=== PATIENT | male | born 1950 | race Caucasian/White ===

== ENCOUNTER 2019-01-22 17:59 | Inpatient (IN) ==
--- NOTE | 2019-01-22 18:20 | PROVIDER DOCUMENTATION ---
HPI-General Adult - General Chief Complaint: Numbness Stated Complaint: (R) ARM NUMB Time Seen by Provider: 01/22/19 18:19 Source: patient Allergies/Adverse Reactions: Patient Allergies Allergy/AdvReac Type Severity Reaction Status Date / Time No Known Allergies Allergy Verified 01/22/19 18:36 Home Medications: Home Medication List Medication Instructions Recorded Confirmed Last Taken Type Carvedilol 6.25 mg PO DAILY 01/22/19 01/22/19 01/21/19 History Clopidogrel [Plavix] 75 mg PO DAILY 01/22/19 01/22/19 01/21/19 History - History of Present Illness -Gen Adult Nature of Presenting Problems: Pt. is 68 yom that presents with c/o right arm numbness that began this morning. Pt. reports no SOB or CP. Pt. reports he is suppose to take two medications but didn't take them this morning. Location of Pain/Injury: reports: upper extremity (Right arm). denies: none, head, face, mouth, neck, chest, hand(s), abdomen, back, pelvis, genitalia, lower extremity, feet, upper body, lower body, generalized, other Pain Radiation: reports: no radiation. denies: arm(s), back, buttocks, chest, epigastric, feet, groin, jaw, flank (L), legs (lower), LLQ, LUQ, neck, p eriumbilical, flank (R), RLQ, RUQ, shoulder(s), scapula, scrotal, sternal notch, suprapubic, legs (upper), urethral, vaginal, other Quality of Pain: reports: other (Numbness). denies: burning, pressure, throbbing Severity: reports: mild. denies: moderate, severe Onset/Duration: reports: abrupt, this morning Timing: reports: still present. denies: improving, intermittent, getting worse Context/Activities at Onset: reports: none. denies: light activity, moderate activity, vigorous activity, recent emotional stress, recent physical stress, recent trauma history, possible bad food, cold exposure, eating, out of country travel, rest, sleep, sexual activity, other Modifying Factors: improves with: nothing Associated Symptoms: reports: other (Right arm numbness). denies: denies symptoms, anxiety, arm pain, back/neck pain, chest pain, constipation, cough, diaphoresis, diarrhea, dizziness, EENT symptoms, fatigue, fever/chills, genitourinary problems, headaches, heartburn, joint pain, loss of appetite, malaise, muscle aches, sinus congestion/drainage, nausea, rash, seizure, shortness of breath, sensory/motor loss, pain with inspiration, swelling/mass in abdomen, syncope, vomiting, weakness, trouble walking Similar Symptoms Previously?: Yes Recently seen or treated by another doctor?: No Review of Systems - Adult - REVIEW OF SYSTEMS - ADULT Constitutional: reports: no symptoms reported Eyes: reports: no symptoms reported Ears, Nose, Mouth & Throat: reports: no symptoms reported Cardiovascular: reports: no symptoms reported Respiratory: reports: no symptoms reported Gastrointestinal: reports: no symptoms reported Genitourinary: reports: no symptoms reported Musculoskeletal: reports: no symptoms reported Integumentary: reports: no symptoms reported Neurological: reports: see HPI, numbness (Right arm). denies: dizziness/vertigo, seizure, tremors Psychiatric: reports: no symptoms reported Past History - Adult - PAST MEDICAL HISTORY-ADULT Review of Records: reports: Old Records Reviewed, Nursing Assessment Review, Medications Reviewed, Social history reviewed & non-contributory. - IMMUNIZATION STATUS Childhood Immunizations: See Nurse Assessment Flu Vaccine: See Nurse Assessment - FAMILY HISTORY Family History: reviewed, not pertinent - SOCIAL HISTORY Smoking: cigarettes, greater than 1 pack/day Provider spent 3-5 mins advising pt. on dangers of tobacco.: Discussed manners to quit use, and f/u contacts for add'l counseling. Physical Exam-General - PHYSICAL EXAM-ADULT Initial Vital Signs Reviewed: Yes - CONSTITUTIONAL General Appearance: alert, no apparent distress. negative: anxious, obtunded, combative - EYES Eyes: PERRL/EOMI, pink conjunctivae - HEAD, EARS, NOSE, MOUTH & THROAT HENMT: normocephalic/atraumatic, moist mucous membranes - NECK Neck: non-tender, full range of motion, supple, normal inspection. negative: lymphadenopathy, trachial deviation, thyromegaly - RESPIRATORY Respiratory: lungs clear, normal breath sounds - CARDIOVASCULAR Cardiovascular: normal peripheral pulses, regular rate, rhythm, no edema - GASTROINTESTINAL (ABDOMEN) Abdominal Exam: normal bowel sounds, non tender, soft - LYMPHATIC Lymphatic: no adenopathy - MUSCULOSKELETAL Back Exam: normal inspection, no CVA tenderness, no vertebral tenderness Extremity: normal range of motion, non-tender, normal gait, normal inspection. negative: erythema, inflammation, swelling, tenderness Peripheral Pulses: radial (R): 2+, radial (L): 2+ - SKIN Integumentary: normal color, normal turgor, warm/dry. negative: cyanosis, jaundice, tenderness - NEUROLOGIC Neurologic: grossly normal, sensory deficit (Right arm numbness). negative: aphasia, facial droop, focal weakness, motor weakness - PSYCHIATRIC Psych/Mental Status: normal mood/affect, normal thought content, normal thought process, oriented x 3. negative: anxious, paranoid, tearful Progress - PLAN OF CARE/RESULTS Progress/Plan/Lab Results: Vital Signs - 8 hr 01/22/19 18:01 Temperature 98.2 F Pulse Rate 104 H Respiratory Rate 20 Blood Pressure 156/93 O2 Sat by Pulse Oximetry 95 Laboratory Tests 01/22/19 01/22/19 01/22/19 18:34 18:34 18:34 WBC 11.19 H RBC 5.25 Hgb 15.9 Hct 48.4 MCV 92.2 MCH 30.3 MCHC 32.9 L RDW Std Deviation 12.9 Plt Count 143 MPV 10.7 H Immature Gran % (Auto) 0.2 Neut % (Auto) 65.6 Lymph % (Auto) 23.8 [place] % (Auto) 6.6 Eos % (Auto) 3.4 Baso % (Auto) 0.4 Immature Gran # (Auto) 0.02 Neut # (Auto) 7.34 H Lymph # (Auto) 2.66 [place] # (Auto) 0.74 H Eos # (Auto) 0.38 Baso # (Auto) 0.05 Sodium 141 Potassium 4.1 Chloride 102 Carbon Dioxide 25 Anion Gap 14 BUN 16 Creatinine 1.0 Estimated GFR/1.73 m2 > 60 BUN/Creatinine Ratio 16 Glucose 127 H Calculated Osmolality 284 Calcium 8.7 L Total Bilirubin 0.20 AST 25 ALT 35 Alkaline Phosphatase 70 Creatine Kinase 58 Troponin T Bqd-G-Rhfvmkwsppd Pept 191 Total Protein 6.4 Albumin 3.8 Globulin 2.6 Albumin/Globulin Ratio 1.5 01/22/19 18:34 WBC RBC Hgb Hct MCV MCH MCHC RDW Std Deviation Plt Count MPV Immature Gran % (Auto) Neut % (Auto) Lymph % (Auto) [place] % (Auto) Eos % (Auto) Baso % (Auto) Immature Gran # (Auto) Neut # (Auto) Lymph # (Auto) [place] # (Auto) Eos # (Auto) Baso # (Auto) Sodium Potassium Chloride Carbon Dioxide Anion Gap BUN Creatinine Estimated GFR/1.73 m2 BUN/Creatinine Ratio Glucose Calculated Osmolality Calcium Total Bilirubin AST ALT Alkaline Phosphatase Creatine Kinase Troponin T < 0.010 Iay-Z-Penaxvlhnkt Pept Total Protein Albumin Globulin Albumin/Globulin Ratio Discussed results and plan of care with patient. Patient agrees with plan and verbalizes understanding. Result Diagrams: 01/22/19 18:34 01/22/19 18:34 - XRAY 1 XRAY Study: Chest ([facility] - [address] , [address], [place] [address] [facility] - [address] [place] [address] Department of Imaging Patient: FAIZAN GREENDM Date: 01/22/19#: [id number] : 1950DM Status: REG [facility]#: [id number] Age/Sex: 68/MRoom/Bed: Loc: ED Ordering Physician: Giovanni Rashid Family Physician: None,PCP Reason for Procedure: arm numbness Signed EXAM: CHEST-PORTABLE HISTORY: arm numbness TECHNIQUE: Single view COMPARISON: None. FINDINGS: The lungs are well expanded. The heart is not enlarged. Left pacemaker. The vessels are not distended. There are no infiltrates. No effusion identified. Scattered granuloma. IMPRESSION: Negative exam. Electronically signed by Raji Blandon 01/22/2019 7:42 PM 01/22/191941 Interpreting Physician: Raji Blandon MD Dictated Date/Time: 01/22/191941 cc: Giovanni Rashid; None,PCP) XRAY Interpretation: See note - CT/MRI 1 CT Study: Head ([facility] - [address], [address], [place] [address] [facility] - [address] [place] [address] Department of Imaging Patient: FAIZAN GREEN Date: 01/22/19#: [id number] : 1950DM Status: [facility]#: [id number] Age/Sex: 68/MRoom/Bed: Loc: ED Ordering Physician: Giovanni Rashid Family Physician: None,PCP Reason for Procedure: Right side numbness Signed EXAM: CT HEAD W/O CONTRAST HISTORY: Right side numbness TECHNIQUE: CT head without contrast COMPARISON: None. FINDINGS: No parenchymal hemorrhage. No epidural or subdural hematoma. No subarachnoid hemorrhage. There are multiple old bilateral infarcts with chronic microvascular ischemic changes. No mass identified on this noncontrasted exam. No hydrocephalus. No sinus opacification. IMPRESSION: 1.No hemorrhage 2.Multiple old bilateral infarcts This exam was performed using automated exposure control, adjustment of mA or kV according to patient size, and/or use of iterative reconstruction technique. Electronically signed by Raji Blandon 01/22/2019 7:18 PM 01/22/191917 Interpreting Physician: Raji Blandon MD Dictated Date/Time: 01/22/191916 cc: Giovanni Rashid; None,PCP) CT Results: See note - CONSULTS/PCP/HOSPITALIST Notification #1 *Consult/PCP/Hospitalist*: Dr. Torres Time Discussed: 21:37 Reason/Comments: Admission Consult Disposition: Will see in ED, Admit Departure - Departure Date of Disposition Decision: 01/22/19 Time of Disposition Decision: 20:58 DIAGNOSIS: TIA (transient ischemic attack), Hyperglycemia Disposition: ADMITTED INPATIENT 09 Certified Medical Emergency: Emergent Condition: Stable Referrals and Follow-Ups: None,PCP [Primary Care Provider] - - Critical Care Note This patient required my direct & personal management of CC.: No Attestation - Physician/ JAYJAY Attestation Patient care was provided by Advanced Practice Provider:: Yes Advanced Practice Provider:: Giovanni Rashid Advanced Practice Provider documentation review:: The Mid-level provider documentation, treatment plan and medical decision making was reviewed by the physician who agrees with all treatment and medical decision making by the MLP. The physician spent face to face time with patient:: No Advanced Practice Provider documentation review:: Supervising physician onsite and consulted in the evaluation and care of this patient. The physician did not have a face to face encounter with the patient. - NIH Stroke Scale NIH Type: Initial Evaluation Level of Consciousness: 0-Alert LOC Questions (ask month and age): 0-Answers Both Correctly LOC Commands (ask to open & close eyes;make a fist, let go): 0-Obeys Both Correctly Best Gaze (horizontal eye movement): 0-Normal Visual (use finger movement, counting or visual threat): 0-No Visual Loss Facial Palsy (show teeth or raise eyebrows & close eyes tght: 0-Symmetrical Movement Motor Function-left arm: 0-Normal Motor Function-right arm: 2-Some Effort Against [place] Motor Function-left le-Normal Motor Function-right le-Normal Limb Ataxia(mvgajz-gbkb-exscxw, or heel to arreola): 0-No Ataxia Sensory(pin prick to face,arms,trunk,legs-compare side/side): 0-No Ataxia Best Language(name item/read sentence.Ex-Down to Earth): 0-No Aphasia Dysarthria(Pt read words or say words Ex.Mama,Tip-Top,Thanks: 0-Normal Articulation Extinction and Inattention: 0-Normal NIH Total Score: 2 (Right arm motor function is good but score of 2 because it doesn't seem as strong as the left arm)
[2019-01-22 18:42] LABS: BASO# 0.05 X1000 (0.0-0.2); BASO% 0.4 % (0.0-0.8); EOS# 0.38 X1000 (0.0-0.7); EOS% 3.4 % (0.0-10.0); HEMATOCRIT 48.4 % (42.0-52.0); HEMOGLOBIN 15.9 g/dL (14.0-18.0); IMM GRAN# 0.02 X1000 (0.0-0.04); IMM GRAN% 0.2 % (0.0-0.5); LYMPH# 2.66 X1000 (1.2-3.4); LYMPH% 23.8 % (20.5-51.1); MCH 30.3 PG (27-31); MCHC 32.9 g/dL (33-37); MCV 92.2 FL (81-99); MONO# 0.74 X1000 (0.11-0.59); MONO% 6.6 % (1.7-9.3); MPV 10.7 FL (7.4-10.4); NEUT# 7.34 X1000 (1.4-6.5); NEUT% 65.6 % (42.2-75.2); PLT 143 X1000 (130-400); RBC 5.25 XMIL (4.7-6.1); RDW 12.9 % (11.5-14.5); WBC 11.19 X1000 (4.8-10.8)
[2019-01-22 19:13] LABS: AGAP 14; ALB/GLOB RATIO 1.5; ALBUMIN 3.8 g/dL (3.5-5.0); ALKALINE PHOSPHATASE 70 U/L (32-122); BUN 16 mg/dL (8-22); CALCIUM 8.7 mg/dL (8.8-10.2); CHLORIDE 102 mmol/L (98-107); CK PROFILE 58 U/L (24-204); COSMO 284; ESTIMATED GFR > 60; GLUCOSE 127 mg/dL (70-104); GOT 25 U/L (10-34); GPT 35 U/L (10-44); POTASSIUM 4.1 mmol/L (3.5-5.1); SODIUM 141 mmol/L (136-145); TCO2 25 mmol/L (25-35); TOTAL PROTEIN 6.4 g/dL (6.3-8.3)
--- NOTE | 2019-01-22 19:21 | Diag Imaging Result Doc PS360 ---
EXAM: CT HEAD W/O CONTRAST HISTORY: Right side numbness TECHNIQUE: CT head without contrast COMPARISON: None. FINDINGS: No parenchymal hemorrhage. No epidural or subdural hematoma. No subarachnoid hemorrhage. There are multiple old bilateral infarcts with chronic microvascular ischemic changes. No mass identified on this noncontrasted exam. No hydrocephalus. No sinus opacification. IMPRESSION: 1.No hemorrhage 2.Multiple old bilateral infarcts This exam was performed using automated exposure control, adjustment of mA or kV according to patient size, and/or use of iterative reconstruction technique. Electronically signed by Raji Blandon 01/22/2019 7:18 PM
--- NOTE | 2019-01-22 19:45 | Diag Imaging Result Doc PS360 ---
EXAM: CHEST-PORTABLE HISTORY: arm numbness TECHNIQUE: Single view COMPARISON: None. FINDINGS: The lungs are well expanded. The heart is not enlarged. Left pacemaker. The vessels are not distended. There are no infiltrates. No effusion identified. Scattered granuloma. IMPRESSION: Negative exam. Electronically signed by Raji Blandon 01/22/2019 7:42 PM
[2019-01-22] MEDS ORDERED: PLAVIX PO ONE (20:56)
[2019-01-22] MEDS ORDERED: COREG PO ONE (20:56)
[2019-01-22] MEDS ORDERED: ASPIRIN PO ONE (20:57)
[2019-01-22 22:52] LABS: INR 0.99; PROTIME 13.2 Seconds (11.0-16.0)
[2019-01-22 22:53] LABS: PTT 29.3 Seconds (22.3-41.8)
[2019-01-23] MEDS ORDERED: ZOFRAN IV PRN (01:28)
[2019-01-23] MEDS ORDERED: TYLENOL PO PRN (01:33)
[2019-01-23] MEDS ORDERED: NICODERM PATCH TD PRN (01:33)
--- NOTE | 2019-01-23 05:35 | HISTORY AND PHYSICAL ---
PRIMARY CARE PROVIDER: NICK Barboza. CANCELLATION CLERK: Dr. Kc at [facility]. DATE AND TIME: 01/22/2019 at 2230. CHIEF COMPLAINT: Right hand numbness. HISTORY OF PRESENT ILLNESS: Mr. Garcia is a 68-year-old male who has a past medical history of coronary artery disease status post stent placement, peripheral vascular disease, CVA and hypertension. The patient presented to the ER this evening at 17:59 with complaints of right hand numbness which he states started earlier in the day at 8 a.m. The patient states that he had numbness and also was reporting some motor control problems as well. The patient states that he can move his hand though he could not exactly get his hand to move to do what he wanted it to do. He stated that his symptoms did resolve just 30 minutes prior to my examination, which to be approximately 10 p.m. He denied any other associated symptoms. He denied any headache, dizziness, feeling lightheaded, near syncope, syncope, or headache. He denied any visual disturbances or changes. He denied any difficulty with speech or confusion. He denied any chest pain, shortness of breath, or cough. He denied any abdominal pain, nausea, vomiting, or diarrhea. He denied any dysuria or urinary frequency. He denied any pain or swelling in extremities. Also denied any fever, body aches, or chills. The patient denied any other numbness or tingling except for in his right hand at this time though he did report approximately 1 week ago that he did present to Cyndi Anderson' office for evaluation of the same right-handed numbness though he was also having in addition to that numbness that did involve more of his right arm as well as his right leg. He also stated that he could not move his right leg or right arm at this time. He states that Ms Anderson did order him to have an outpatient CT of the head as well as a carotid ultrasound. He reports the CT of the head was done at an imaging center in [place]. He reports that the ultrasound of his carotid arteries was performed at her office though he states he has not heard back from her at this time or does not know his study results. He reported that during this episode that his symptoms began prior to going to her office. They did resolve while he was in her office though outside of this episode 1 week ago he denied any other recent episodes like this. He reports that in 2012 he did have a stroke then though denied having any residual deficits. Upon evaluation in the ER, the patient was alert and oriented to person, place, time, and situation. He is somewhat of a poor historian related to his past medical history though other than this does answer and follow commands appropriately. He had equal muscle strength in hand grasps bilaterally. The patient does have some asymmetry noted to his smile with what does appear like a left-sided facial droop especially at his mouth and left cheek though his the patient and his son at bedside both confirm that this has been present since an injury back in 1974 for which he did have head and facial trauma. They report this is not of new onset. His speech was clear and understandable. He had no arm drift noted. He did have some very mild leukocytosis with a white blood cell count of 11,190 though chemistries were pretty unremarkable except for his glucose level was slightly elevated at 127 though CK was 58, troponin was less than 0.01, proBNP was 191. Chest x-ray did not show any acute abnormalities. EKG showed normal sinus rhythm with a right bundle branch block at a rate of 96 with a QTc of 510. CT of the head without contrast did show no hemorrhage. There were multiple old bilateral infarcts. He was given a full-dose aspirin as well as Plavix 75 mg in the ER. The patient states that he normally takes Plavix and an 81 mg aspirin daily though did not take these medications this morning. He will be placed inpatient for admission for evaluation of a TIA. REVIEW OF SYSTEMS: A 14 point review of systems was conducted with the patient and all were negative except for pertinent positives mentioned in above HPI. PAST MEDICAL HISTORY: 1. Coronary artery disease status post stent placement. 2. History of peripheral vascular disease status post angioplasty and stent placement in reported arteries in bilateral lower extremities. 3. History of pacemaker/defibrillator placement for which the patient states that he did have this placed after he had his heart attack for an irregular heart rhythm though he was uncertain what type. 4. Nicotine dependence. 5. Hypertension. PAST SURGICAL HISTORY: 1. Cholecystectomy. 2. Abdominal aortic aneurysm repair. 3. Cardiac stent placement. 4. Peripheral artery angioplasty and stent placement. 5. Pacemaker defibrillator placement. SOCIAL HISTORY: The patient is a current every day smoker. He smokes 1 pack per day. He denies any alcohol or illicit drug use. FAMILY HISTORY: Positive for his mother and father both having a history of cancer though the patient was unsure what type. He does have siblings though he reports they are in good health. ALLERGIES: Patient has no known allergies. HOME MEDICATIONS: 1. Coreg 6.25 mg p.o. b.i.d. 2. Citalopram 20 mg p.o. daily. 3. Plavix 75 mg p.o. daily. 4. Rosuvastatin 5 mg p.o. daily. 5. Aspirin 81 mg p.o. daily. DIAGNOSTIC DATA/LABORATORY RESULTS: White blood cell count is 11,190, hemoglobin 15.9, hematocrit is 48.4, platelet count is 143,000. PT 13.2, INR is 0.99, PTT is 29.3. Sodium 141, potassium 4.1, chloride 102, serum bicarbonate is 25, BUN 16, creatinine is 1. GFR is greater than 60. Glucose 127, calcium 8.7. Liver function tests are within normal limits. CK is 58. Troponin is less than 0.01. ProBNP is 191. EKG showed normal sinus rhythm and a left bundle branch block at a rate of 96 with a QTc of 510. Chest x-ray showed no acute abnormality. This is per Radiology. There was noted to be a left- sided pacemaker and some scattered granuloma though the lungs were well expanded. The heart was not enlarged. The vessels were not distended and there were no infiltrates or effusions identified. CT of the head without contrast showed no hemorrhage. There is no epidural or subdural hematoma. There were multiple old bilateral infarcts with chronic microvascular ischemic changes though no mass identified. No hydrocephalus and no sinus opacification. This was per Radiology. PHYSICAL EXAMINATION: VITAL SIGNS: Temperature 97.5 degrees, heart rate 79, respirations 18, blood pressure is 171/85, oxygen saturation is 97% on room air. GENERAL: Mr. Garcia is a very pleasant 68-year-old male who was resting in the ER stretcher. He is in no acute distress. He was awake, alert, and able to answer questions appropriately. HEENT: Head is atraumatic, normocephalic. Pupils are equal, round, reactive to light, were 3 mm bilaterally and brisk. EOMS were intact. Oral mucosa is moist. Oropharynx was clear. NECK: Supple. Trachea midline. CARDIOVASCULAR: Patient has S1-S2 present. No murmurs, gallops, rubs appreciated with a regular rate and rhythm. PULMONARY: Patient has symmetrical chest expansion bilaterally. Lung sounds are clear to auscultation in bilateral full cadena. ABDOMEN: Soft, nontender, nondistended. Bowel sounds are present in all 4 quadrants, were normoactive. EXTREMITIES: No cyanosis or edema noted. Pulse, motor and sensory are intact in all extremities. Radial and pedal pulses were 2+ bilaterally. INTEGUMENTARY: The patient's skin is pink, warm, and dry. NEUROLOGICAL: Patient is alert and oriented to person, place, time, and situation. He was able to answer questions and follow commands appropriately. The patient did have some asymmetry noted to the left side of his face at the left corner of his mouth and left cheek area though his son and the patient both confirm this is not of new onset. This is per previous injury from 1974. His speech was clear and understandable. EOMs were intact. He had equal muscle strength in hand grasps bilaterally. He had no arm drift noted. ASSESSMENT AND PLAN: 1. Possible transient ischemic attack/cerebrovascular accident. The patient now has had 2 episodes, 1 being a week ago for which he reported right upper extremity and right lower extremity numbness and loss of motor control. Tonight, he only reported right hand numbness. Both episodes did have resolving of symptoms within several hours of onset. The patient does have a previous history of stroke in 2011. He did report that he received a CT of the head without contrast at an outpatient imaging Center in [place] as well as a carotid ultrasound at Cyndi Anderson' office [address] of the head here tonight did not show any acute findings though did show some old bilateral infarcts. We will continue with an echocardiogram. We can try to obtain his carotid ultrasound results from [facility]' office though if unable to do so may likely need to repeat carotid ultrasound study. We will continue with his daily aspirin and Plavix as well as his Crestor. We will allow for some permissive hypertension. We have held his Coreg at this time. We will continue to monitor this closely. He will be on continuous cardiac telemetry with frequent vital signs as well as neuro checks. We have placed a consult with Dr. Odonnell with Neurology. He will be on a heart healthy diet. We will await results of diagnostic studies and Neurology's evaluation and further recommendations for management. 2. History of coronary artery disease status post stent placement. We will continue his regularly prescribed cardiac medications as mentioned above. 3. Hypertension. Given the patient's possibility of TIA versus stroke, we will allow for some permissive hypertension. His blood pressure at this time is 151/85. We will monitor this closely and implement antihypertensives if necessary. 4. Nicotine dependence. We did addiction treatment counselor the patient for several minutes on the importance of smoking cessation given his history of peripheral vascular disease, coronary artery disease, stroke and high blood pressure. We will continue to addiction treatment counselor him on this throughout his admission and upon discharge. We have placed orders for p.r.n. nicotine patch if needed. The patient has been placed on the medical floor with telemetry. He will have frequent vital signs and neurological checks. We will repeat a CBC, BMP in the morning. We have also added on a hemoglobin A1c. The patient's serum glucose was slightly elevated at 127. Further orders and recommendations pending hospital course, diagnostic studies and physician evaluation. Dictated by NICK Cortes for Luís Del Valle MD cc: Luís Del Valle MD Patient presenting with right upper extremity weakness. Head ct report as below: CT of the head without contrast showed no hemorrhage. There is no epidural or subdural hematoma. There were multiple old bilateral infarcts with chronic microvascular ischemic changes though no mass identified. No hydrocephalus and no sinus opacification I concur with the assessment and plan of the EXTENSION WORKER. Dr. Del Valle. [facility]
[2019-01-23 07:06] LABS: BASO# 0.03 X1000 (0.0-0.2); BASO% 0.4 % (0.0-0.8); EOS# 0.36 X1000 (0.0-0.7); EOS% 4.8 % (0.0-10.0); HEMATOCRIT 46.8 % (42.0-52.0); HEMOGLOBIN 15.5 g/dL (14.0-18.0); LYMPH# 2.01 X1000 (1.2-3.4); LYMPH% 27.1 % (20.5-51.1); MCH 30.8 PG (27-31); MCHC 33.1 g/dL (33-37); MCV 92.9 FL (81-99); MONO# 0.65 X1000 (0.11-0.59); MONO% 8.7 % (1.7-9.3); MPV 11.1 FL (7.4-10.4); NEUT# 4.38 X1000 (1.4-6.5); PLT 130 X1000 (130-400); RBC 5.04 XMIL (4.7-6.1); RDW 13.1 % (11.5-14.5); WBC 7.43 X1000 (4.8-10.8)
[2019-01-23 07:25] LABS: AGAP 12; BUN 14 mg/dL (8-22); CALCIUM 8.8 mg/dL (8.8-10.2); CHLORIDE 102 mmol/L (98-107); COSMO 283; ESTIMATED GFR > 60; GLUCOSE 92 mg/dL (70-104); POTASSIUM 4.5 mmol/L (3.5-5.1); SODIUM 142 mmol/L (136-145); TCO2 28 mmol/L (25-35)
[2019-01-23 07:31] LABS: HEMOGLOBIN A1C 5.7 % (4.8-6.0)
[2019-01-23 07:34] VITALS: BP 130/73
--- NOTE | 2019-01-23 08:06 | EKG Report ---
Test Performed on : 01/22/2019 6:06:25 PM Test Reason : ED. NO order in [place] Blood Pressure : / mmHG Vent. Rate : 096 BPM Atrial Rate : 096 BPM P-R Int : 164 ms QRS Dur : 144 ms QT Int : 404 ms P-R-T Axes : 035 184 029 degrees QTc Int : 510 ms Normal sinus rhythm. Right bundle branch block Inferior infarct , age undetermined Anterolateral infarct , age undetermined Abnormal ECG No previous ECGs available Unconfirmed Result
[2019-01-23] MEDS ORDERED: CRESTOR PO SCH (09:00)
[2019-01-23] MEDS ORDERED: ASPIRIN PO SCH (09:00)
[2019-01-23] MEDS ORDERED: CELEXA PO SCH (09:00)
--- NOTE | 2019-01-23 11:09 | DISCHARGE SUMMARY ---
ADMISSION DATE: 01/22/2019 DISCHARGE DATE: 01/23/2019 DISCHARGE DIAGNOSES: 1. Transient ischemia attack versus cerebrovascular accident, symptoms resolved. 2. History of coronary artery disease, status post stent placement. 3. Hypertension. 4. Nicotine dependence. 5. History of previous cerebrovascular accident in 2011, apparently treated medically. 6. 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 HOSPITAL COURSE: A 68-year-old male with a past medical history of coronary artery disease and stent placement, peripheral vascular disease, CVA, and hypertension who came to the emergency department complaining of right-hand numbness that started earlier yesterday, 01/22/2019 at 8 a.m. He also reported some motor control problems as well, symptoms resolved completely, close to 10 p.m. per the admitting nurse practitioner. CT scan did not show any new abnormality, but some old strokes, he does have some facial deviation, but apparently this is normal for him since he had an accident with brain trauma in 1974. Also, he has a history of stroke, I believe in 2011 and was treated medically. My physical exam at this moment did not show any new abnormality and this patient is feeling good. I told the patient that we are going to do a carotic ultrasound, also we are going to do an echocardiogram and he will likely be evaluated by Neurology Department. Probably an MRI is going to be considered as well, but after asking me all the questions he has decided to leave [facility]. Also, we discussed that if the symptoms happen again, he needs to go immediately to the emergency department. I explained to him that we cannot treat a person with a stroke if this person is out of the window for treatment. He seems to understand. The family member at the bedside I believe is his son. Also, I talked to him about tobacco cessation, but I am not quite sure if he is going to stop smoking. Again, this patient has decided to leave [facility] and he will sign the documents. PHYSICAL EXAMINATION: Vital Signs: Temperature 97.9 degrees, pulse 73, respiratory rate 18, blood pressure 130/73, oxygen saturation 90 on room air. HEENT: Head normocephalic, no trauma. PERRLA. He does have some facial deviation which is chronic. Neck is supple. No JVD. Central trachea. Chest: Clear to auscultation. No wheezing. No rales. Abdomen: Soft, nontender, nondistended. No hepatosplenomegaly. Extremities: No edema. No clubbing. No cyanosis. Neurological: The patient is alert and oriented x3. No focal deficits. LABORATORY DATA: WBC 7.4, hemoglobin 15.5, hematocrit 46.8, platelet 130,000. Sodium 142, potassium 4.5, chloride 102, bicarbonate 28, BUN 14, creatinine 1, glucose 92, calcium 8.8. DISCHARGE MEDICATIONS: This patient will continue with his home medications including Plavix 75 mg p.o. daily. Rosuvastatin 5 mg p.o. tablet daily. Citalopram 20 mg p.o. daily and carvedilol 625 mg p.o. daily. cc: Kaleb Valdez MD
[2019-01-24] MEDS ORDERED: PLAVIX PO SCH (09:00)
== END 2019-01-23 10:51 | disposition home or self-care (01) | DRG 65 ==
LOC: ED 17:59 → SUATTDRO 23:52 → 3N 23:52
PROVIDERS: ATTEND Internal Medicine